=== PATIENT | female | born 1930 | race Caucasian/White ===

== ENCOUNTER 2016-10-02 07:14 | Day surgery (SDC) | payer MEDICARE ==
--- NOTE | ~2016-10-02 | EGD ---
EGD REPORT [facility] [address] [address] NAME: SHREYA BARRIENTOS : [birth year] STATUS : REG [facility]#: [id number] AGE: 85 ADM/REG DATE : 10/02/16 MR#: [id number] REPORT SERV DATE: 10/02/16 DICTATED BY: DATE: REPORT STATUS : Draft TRANSCRIBED BY: [employer] DATE: 10/02/16 [facility] Center Patient Name: Shreya Barrientos Date of : 1930 Attending MD: MARLENE SORIANO MD Procedure Date No Time: 10/02/2016 Procedure: Upper GI endoscopy Indications: Iron deficiency anemia Referring MD: DEE SALVADOR Medicines: Monitored Anesthesia Care Complications: No immediate complications. Procedure: Pre-Anesthesia Assessment: - ASA Grade Assessment: III - A patient with severe systemic disease. After obtaining informed consent, the endoscope was passed under direct vision. Throughout the procedure, the patient's blood pressure, pulse, and oxygen saturations were monitored continuously. The GIF H190 [id number] was introduced through the mouth, and advanced to the third part of duodenum. The upper GI endoscopy was accomplished without difficulty. The patient tolerated the procedure well. Findings: The examined esophagus was mildly tortuous. The Z-line was regular and was found 34 cm from the incisors. A 9 cm hiatus hernia was present. No other significant abnormalities were identified in a careful examination of the esophagus. There is no endoscopic evidence of Gupta's esophagus, areas of erosion, ulcerations or varices in the entire esophagus. Patchy erythematous mucosa without bleeding was found in the gastric body and in the gastric antrum. Localized mild mucosal abnormality characterized by discoloration was found in the prepyloric region of the stomach. Biopsies were taken with a cold forceps for histology. A few localized erosions were found in the gastric body. There were no stigmata of recent bleeding. Biopsies were taken with a cold forceps for histology. No other significant abnormalities were identified in a careful examination of the stomach. There is no endoscopic evidence of bleeding, ulceration or varices in the entire examined stomach. The examined duodenum was normal. Biopsies were taken with a cold forceps for histology. EGD REPORT [address] [address] NAME: SHREYA BARRIENTOS : [birth year] STATUS : REG [facility] PAT#: [id number] AGE: 85 ADM/REG DATE : 10/02/16 MR#: [id number] REPORT SERV DATE: 10/02/16 DICTATED BY: DATE: REPORT STATUS : Draft TRANSCRIBED BY: [employer] DATE: 10/02/16 There is no endoscopic evidence of inflammation, mucosal abnormalities, ulceration or angioectasia in the entire examined duodenum. The cardia and gastric fundus were normal on retroflexion. Impression: - Tortuous esophagus. - Z-line regular, 34 cm from the incisors. - Hiatus hernia. - Erythematous mucosa in the gastric body and antrum. - Discolored mucosa in the prepyloric region of the stomach. Biopsied. - Brent erosions related to large hiatal hernia. Biopsied. - Normal examined duodenum. Biopsied. Recommendation: - Patient has a contact number available for emergencies. The signs and symptoms of potential delayed complications were discussed with the patient. Return to normal activities tomorrow. Written discharge instructions were provided to the patient. - Regular diet. - Discharge patient to home. - Continue present medications. - Await pathology results. - Use PPI BID Procedure Code(s): --- Professional --- 64807, Esophagogastroduodenoscopy, flexible, transoral; with biopsy, single or multiple Diagnosis Code(s): --- Professional --- Q39.9, Congenital malformation of esophagus, unspecified K44.9, Diaphragmatic hernia without obstruction or gangrene K31.9, Disease of stomach and duodenum, unspecified D50.9, Iron deficiency anemia, unspecified CPT copyright 2013 [employer]. All rights reserved. The codes documented in this report are preliminary and upon quality control auditor review may be revised to meet current compliance requirements. MARLENE SORIANO MD 10/02/2016 10:29 AM This report has been signed electronically. Number of Addenda: 0 EGD REPORT [facility] [address] [facility] [address] NAME: SHREYA BARRIENTOS : [birth year] STATUS : REG [facility]#: [id number] AGE: 85 ADM/REG DATE : 10/02/16 MR#: [id number] REPORT SERV DATE: 10/02/16 DICTATED BY: DATE: REPORT STATUS : Draft TRANSCRIBED BY: [employer] DATE: 10/02/16 Note Initiated On: 10/02/2016 9:28 AM Scope Withdrawal Time 0 hours 0 minutes 0 seconds [address] [place] [address]
--- NOTE | ~2016-10-02 | EGD ---
EGD REPORT [facility] [address] [address] NAME: SHREYA BARRIENTOS : [birth year] STATUS : REG [facility]#: [id number] AGE: 85 ADM/REG DATE : 10/02/16 MR#: [id number] REPORT SERV DATE: 10/02/16 DICTATED BY: DATE: REPORT STATUS : Draft TRANSCRIBED BY: [employer] DATE: 10/02/16 Endoscopy Center Patient Name: Shreya Barrientos Date of : 1930 Attending MD: MARLENE SORIANO MD Procedure Date No Time: 10/02/2016 Procedure: Colonoscopy Indications: Gastrointestinal occult blood loss, Iron deficiency anemia Referring MD: DEE SALVADOR Medicines: Monitored Anesthesia Care Complications: No immediate complications. Procedure: Pre-Anesthesia Assessment: - ASA Grade Assessment: III - A patient with severe systemic disease. After I obtained informed consent, the scope was passed under direct vision. Throughout the procedure, the patient's blood pressure, pulse, and oxygen saturations were monitored continuously. The PCF [id number] was introduced through the anus and advanced to the cecum, identified by appendiceal orifice and ileocecal valve. The colonoscopy was performed without difficulty. The patient tolerated the procedure well. The quality of the bowel preparation was good. Findings: The perianal exam was abnormal. Findings include internal hemorrhoids that prolapse with straining, but spontaneously regress to the resting position (Grade II). Multiple small and large-mouthed diverticula were found in the entire colon. No other significant abnormalities were identified in a careful examination of the remainder of the colon. There is no endoscopic evidence of bleeding, inflammation, mass, polyps, ulcerations or angioectasia in the entire colon. No additional abnormalities were found on retroflexion. Impression: - Internal hemorrhoids that prolapse with straining, but spontaneously regress to the resting position (Grade II) found on perianal exam. - Diverticulosis in the entire examined colon. Recommendation: - Patient has a contact number available for emergencies. The signs and symptoms of potential delayed complications were discussed with the patient. Return to EGD REPORT [address] [address] NAME: SHREYA BARRIENTOS : [birth year] STATUS : REG [facility]#: [id number] AGE: 85 ADM/REG DATE : 10/02/16 MR#: [id number] REPORT SERV DATE: 10/02/16 DICTATED BY: DATE: REPORT STATUS : Draft TRANSCRIBED BY: [employer] DATE: 10/02/16 normal activities tomorrow. Written discharge instructions were provided to the patient. - High fiber diet. - Continue present medications. - Repeat colonoscopy is not recommended for surveillance. Procedure Code(s): --- Professional --- 03970, Colonoscopy, flexible, proximal to splenic flexure; diagnostic, with or without collection of specimen(s) by brushing or washing, with or without colon decompression (separate procedure) Diagnosis Code(s): --- Professional --- K64.1, Second degree hemorrhoids K57.30, Diverticulosis of large intestine without perforation or abscess without bleeding R19.5, Other fecal abnormalities D50.9, Iron deficiency anemia, unspecified CPT copyright 2013 [employer]. All rights reserved. The codes documented in this report are preliminary and upon mva reactor operator head review may be revised to meet current compliance requirements. MARLENE SORIANO MD 10/02/2016 10:53 AM This report has been signed electronically. Number of Addenda: 0 Note Initiated On: 10/02/2016 9:36 AM Scope Withdrawal Time 0 hours 12 minutes 53 seconds [address] [address]
[~2016-10-02 07:14] MED LIST: AMIT10 PO; APPLE CIDER VINEGAR PO; ASA5GR PO; CARDCD240 PO; CINNAMON CHROMIUM PO; COZAAR100 MG PO; DEMA10T PO; FERREX 150150 MG PO; FISH OIL1200 MG PO; FORTAMET500 MG PO; GLUCOPHAGE1000 MG PO; GLUCOTRO10 PO; HCTZ25B PO; IMU PO; KLOR-CON 1010 MEQ PO; LEVEMFLXPN SC; LEVOTHYROXIN100 MCG PO; LEVOTHYROXIN112 MCG PO; LIPITOR40 PO; LISINOPRIL40 MG PO; LORTAB 5 PO; MELATONIN1 M1 PO; MOBIC7.5 PO; MULTIPLE VIT PO; NORCO1 TA1 PO; PRAVACHOL40 MG PO; PRILO PO; PRILOSEC40 MG PO; VERELAN180 MG PO; VITAMIN D31000 UNIT PO; VITE PO; VITE200U PO; X25 PO; X5 PO; XARELTO20 MG PO; [UNRECOGNIZED DRUG - OTHER] PO
== END 2016-10-02 23:59 | disposition home health service (06) ==
LOC: DMU 07:14
PROVIDERS: Internal Medicine Gastroenterology
PROC: 0DJD8ZZ Inspection of Lower Intestinal Tract, Via Natural or Artificial Opening Endoscopic (ICD-10-PCS; 2016-10-02)
PROC: 0DB78ZX Excision of Stomach, Pylorus, Via Natural or Artificial Opening Endoscopic, Diagnostic (ICD-10-PCS; principal; 2016-10-02 10:00)
PROC: 0DB68ZX Excision of Stomach, Via Natural or Artificial Opening Endoscopic, Diagnostic (ICD-10-PCS; 2016-10-02 10:00)
DX: K29.50 Unspecified chronic gastritis without bleeding (principal); K64.1 Second degree hemorrhoids; K57.30 Diverticulosis of large intestine without perforation or abscess without bleeding; K44.9 Diaphragmatic hernia without obstruction or gangrene; K21.9 Gastro-esophageal reflux disease without esophagitis; F41.9 Anxiety disorder, unspecified; F32.9 Major depressive disorder, single episode, unspecified; I48.91 Unspecified atrial fibrillation; I11.0 Hypertensive heart disease with heart failure; E11.9 Type 2 diabetes mellitus without complications; E03.9 Hypothyroidism, unspecified; G47.30 Sleep apnea, unspecified; M19.90 Unspecified osteoarthritis, unspecified site; I50.9 Heart failure, unspecified; E78.00 Pure hypercholesterolemia, unspecified; Z88.2 Allergy status to sulfonamides; Z88.8 Allergy status to other drugs, medicaments and biological substances; Z90.49 Acquired absence of other specified parts of digestive tract
CPT/HCPCS: 82962; 88305; 88342